=== PATIENT | male | born 1940 | race Caucasian/White ===

== ENCOUNTER → 2021-07-30 | Outpatient (CLI) | payer MEDICARE ==
[~2021-07-30] MED LIST: ALTACE5 MG PO; ANTIVERT 25MG T25 MG PO; ASPIRIN EC81 MG PO; COQ-1030 MG PO; COREG CR20 MG PO; CRESTOR 10 MG T10 MG PO; FISH OIL 1,0001 EACH PO; GLUCOPHAGE1000 MG PO; GLUCOTROL XL5 MG PO; INSPRA25 MG PO; OMEGA-31000 MG PO; PLAVIX75 MG PO; SAW PALMETTO500 MG PO; VITAMIN C1000 M2 PO; VITAMIN D350 MCG PO; VITAMIN E400 UNI2 PO; ZINC30 MG PO
== END ==
LOC: KOH-I 11:13
DX: R31.9 Hematuria, unspecified (principal); R10.9 Unspecified abdominal pain; N13.2 Hydronephrosis with renal and ureteral calculous obstruction
CPT/HCPCS: 74176

== ENCOUNTER → 2021-08-01 | Outpatient (CLI) | payer MEDICARE | LOC: OPSV 12:24 | DX: E86.0 Dehydration (principal); N23 Unspecified renal colic | CPT/HCPCS: 96360; J7030 ==